=== PATIENT | female | born 1960 | race African-American/Black ===

== ENCOUNTER 2021-05-17 09:28 | Emergency (ER) | payer BC, OTHER ==
[~2021-05-17] VITALS: Ht 165.1 cm; Wt 75.0 kg
[2021-05-17] MEDS ORDERED: ONDANSETRON HCL 4MG/2ML INJ IV STA (09:42)
[2021-05-17] MEDS ORDERED: MORPHINE SULFATE 4 MG/ML CPJ (NOT FOR IM USE) IV STA (09:42)
[2021-05-17 10:33] LABS: BASOPHILS % 1.2 % (0.0-2.0); EOSINOPHILS % 0.1 % (0.0-5.0); HEMATOCRIT. 41.1 % (36.0-48.0); HEMOGLOBIN. 13.7 g/dL (12.0-16.0); LYMPHOCYTES % 35.6 % (20.0-50.0); MEAN CORPUSCULAR HEMOGLOBIN 32.1 pg (28.0-32.0); MEAN CORPUSCULAR VOLUME 95.9 fL (81.0-99.0); MEAN PLATELET VOLUME 8.3 fl (7.4-10.4); MONOCYTES % 14.4 % (2.0-8.0); NEUTROPHILS % 48.7 % (40.0-76.0); PLATELET 296 x1000/uL (130-400); RED BLOOD CELL COUNT 4.28 mill/uL (4.2-5.4); RED CELL DISTRIBUTION WIDTH 13.2 % (11.6-14.6)
[2021-05-17 10:34] LABS: CHLORIDE 105 mEq/L (98-107)
[2021-05-17 13:03] LABS: CLARITY URINE CLEAR (CLEAR); COLOR URINE YELLOW (YELLOW); KETONES URINE TRACE (NEGATIVE); LEUKOCYTE ESTERASE URINE NEGATIVE (NEGATIVE); NITRITE URINE NEGATIVE (NEGATIVE); OCCULT BLOOD URINE NEGATIVE (NEGATIVE); PH URINE 5.5 (4.5-8.0); PROTEIN URINE TRACE (NEGATIVE); SPECIFIC GRAVITY URINE 1.098 (1.005-1.030); UROBILINOGEN URINE 0.2 E.U./dL (0.2-1.0)
[2021-05-17] MEDS ORDERED: IOHEXOL-350 100 ML BOTTLE ONE (13:48)
[2021-05-17] MEDS ORDERED: IBUP-2029 MT (14:49)
[2021-05-17 16:50] VITALS: BP 135/62
== END 2021-05-17 17:53 | disposition home or self-care (01) ==
LOC: ER 09:28
DX: R07.89 Other chest pain (principal)
CPT/HCPCS: 36415; 71045; 71275; 80053; 81003; 83880; 84484; 85025; 93005; 96374; 96375; 99285; J2270; J2405; Q9967